=== PATIENT | male | born 1995 | race Caucasian/White ===

== ENCOUNTER → 2016-12-26 | Outpatient (CLI) | payer OTHER ==
--- NOTE | ~2016-12-26 | S ---
[facility] [address] [place] [address] SURGICAL PATH RPT PROCEDURE Name: ELIJAH HYMAN Room #: REG MARIA A M.R.#: [id number] Admission: 12/26/16 Date of : 89 Discharge: Report #: [id number] Path Case #: [id number] PATHOLOGY REPORT DRAFT COLLECTION DATE: 12/26/2016 RECEIVED DATE: 12/26/2016 SPECIMEN(S) RECEIVED: A.Lymph node/neck mass
== END ==
LOC: CAT 09:21 → ULTRA 09:21
DX: R22.1 Localized swelling, mass and lump, neck (principal)